=== PATIENT | male | born 1965 | race Caucasian/White ===

== ENCOUNTER 2017-04-16 09:19 | Emergency (ER) | payer BC ==
[~2017-04-16] VITALS: Ht 182.9 cm; Wt 100.0 kg
[2017-04-16] MEDS ORDERED: IOHEXOL 350 MG/ML 10 ML VIAL (for RAD DIAG) IVCONTRAST ONE (09:20)
[2017-04-16 09:24] VITALS: BP 193/103; PULSE 64; RESP 18; TEMP 97.8; O2SAT 100
[2017-04-16 10:11] VITALS: BP 183/99; PULSE 89
[2017-04-16] MEDS ORDERED: MORPHINE SULFATE 4 MG/ML INJ IV PUSH ONE (11:00)
[2017-04-16] MEDS ORDERED: SODIUM CHLORIDE 0.9% FLUSH 10 ML FLUSH IV FLUSH PRN (11:00)
[2017-04-16] MEDS ORDERED: ONDANSETRON HCL 4 MG/2 ML VIAL IVP ONE (11:00)
--- NOTE | 2017-04-16 11:06 | PD ---
HPI . Inability to urinate Chief Complaint: Complaint Time Seen by Provider: 10:38 Travel History International Travel<30 days: No Contact w/Intl Traveler<30days: No Traveled to known affect area: No History of Present Illness HPI This patient presents with chief complaint of the urge to urinate but the inability to do so. Onset of symptoms was shortly prior to presentation. He reports that he urinated normally on awakening this morning. He subsequently developed lower abdominal pain with the urge to urinate. This relatively suddenly. He does not have any back pain. No dysuria, frequency or hematuria. This pain is more on the left side. He rates it 7/10. No modifying factors. PFSH Past Medical History GERD: Yes Social History Alcohol Use: Yes (on occasion) Tobacco Use: No Substance Use: No Allergies-Medications (Allergen,Severity, Reaction): Coded Allergies: No Known Allergies (Unverified , 04/16/17) Review of Systems Except as stated in HPI: all other systems reviewed are Neg General / Constitutional: No: Fever, Chills Gastrointestinal: Positive: Nausea, Vomiting, No: Diarrhea Genitourinary: Positive: Urgency, Decreased Urinary Output, No: Frequency, Dysuria, Hematuria, Hesitancy, Dribbling Physical Exam Narrative GENERAL: Patient is awake and alert. SKIN: warm/dry. HEAD: Normocephalic. Atraumatic. EYES: Pupils equal and round. No scleral icterus. No injection or drainage. ENT: No nasal bleeding or discharge. Mucous membranes pink and moist. NECK: Trachea midline. Full range of motion without pain.. CARDIOVASCULAR: Regular rate and rhythm. RESPIRATORY: No accessory muscle use. Clear to auscultation. Breath sounds equal bilaterally. GASTROINTESTINAL: Abdomen soft. Suprapubic tenderness. Bowel sounds present. Nondistended. No CVA tenderness. MUSCULOSKELETAL: No obvious deformities. NEUROLOGICAL: Awake and alert. No obvious cranial nerve deficits. Motor grossly within normal limits. Normal speech. PSYCHIATRIC: Appropriate mood and affect; insight and judgment normal. Data Data Last Documented VS Vital Signs Date Time Temp Pulse Resp B/P (MAP) Pulse Ox O2 Delivery O2 Flow Rate FiO2 04/16/17 10:12 89 18 04/16/17 10:11 183/99 (127) 04/16/17 09:24 97.8 100 Orders Orders Complete Blood Count With Diff (04/16/17 10:59) Comprehensive Metabolic Panel (04/16/17 10:59) Urinalysis - C+S If Indicated (04/16/17 10:59) Ct Abd/Pel W Iv Contrast(Rout) (04/16/17 10:59) Iv Access Insert/Monitor (04/16/17 10:59) Morphine Inj (Morphine Inj) (04/16/17 11:00) Ondansetron Inj (Zofran Inj) (04/16/17 11:00) Sodium Chloride 0.9% Flush (Ns Flush) (04/16/17 11:00) Iohexol 350 Inj (Omnipaque 350 Inj) (04/16/17 09:20) Hydromorphone Pf Inj (Dilaudid Pf Inj) (04/16/17 13:15) Tamsulosin (Flomax) (04/16/17 13:15) Labs Laboratory Tests Test 04/16/17 11:25 04/16/17 12:57 White Blood Count 17.1 TH/MM3 Red Blood Count 4.97 MIL/MM3 Hemoglobin 15.3 GM/DL Hematocrit 45.4 % Mean Corpuscular Volume 91.3 FL Mean Corpuscular Hemoglobin 30.8 PG Mean Corpuscular Hemoglobin Concent 33.7 % Red Cell Distribution Width 13.0 % Platelet Count 319 TH/MM3 Mean Platelet Volume 8.7 FL Neutrophils (%) (Auto) 90.3 % Lymphocytes (%) (Auto) 5.5 % Monocytes (%) (Auto) 3.9 % Eosinophils (%) (Auto) 0.0 % Basophils (%) (Auto) 0.3 % Neutrophils # (Auto) 15.5 TH/MM3 Lymphocytes # (Auto) 0.9 TH/MM3 Monocytes # (Auto) 0.7 TH/MM3 Eosinophils # (Auto) 0.0 TH/MM3 Basophils # (Auto) 0.1 TH/MM3 CBC Comment DIFF FINAL Differential Comment Blood Urea Nitrogen 15 MG/DL Creatinine 1.25 MG/DL Random Glucose 143 MG/DL Total Protein 7.9 GM/DL Albumin 4.3 GM/DL Calcium Level 9.3 MG/DL Alkaline Phosphatase 88 U/L Aspartate Amino Transf (AST/SGOT) 19 U/L Alanine Aminotransferase (ALT/SGPT) 27 U/L Total Bilirubin 0.4 MG/DL Sodium Level 136 MEQ/L Potassium Level 3.9 MEQ/L Chloride Level 101 MEQ/L Carbon Dioxide Level 23.9 MEQ/L Anion Gap 11 MEQ/L Estimat Glomerular Filtration Rate 61 ML/MIN [facility] Medical Decision Making Medical Screen Exam Complete: Yes Emergency Medical Condition: Yes Differential Diagnosis Differential diagnosis of abdominal pain includes but is not limited to gastritis, pancreatitis, hepatitis, gastroenteritis, gallbladder disease, constipation, urinary retention, UTI, peptic ulcer disease, diverticulitis or appendicitis Narrative Course This patient presents with lower abdominal pain and the acute inability to urinate. He urinated normally earlier today. Bladder scanner was done and showed only 80 cc of urine in the bladder. An IV will be started and he will be given IV analgesia. CT of the abdomen and pelvis is pending to look for diverticulitis or kidney stone. Diagnosis Primary Impression: Kidney stone Referrals: Carlito Jackman MD Patient Instructions: General Instructions, Kidney Stones (DC) Med/Other Pt SpecificInfo: Prescription(s) given Scripts Ibuprofen (Ibuprofen) 800 Mg Tab 800 MG PO Q8H Y for Pain/Inflammation, #60 TAB 0 Refills Prov: Swetha De Santiago MD 04/16/17 Tamsulosin (Flomax) 0.4 Mg Cap 0.4 MG PO HS for Manage Prostate Problems, #30 CAP 0 Refills Prov: Swetha De Santiago MD 04/16/17 Promethazine (Phenergan) 25 Mg Tablet 25 MG PO Q6H Y for NAUSEA OR VOMITING, #12 TAB 0 Refills Prov: Swetha De Santiago MD 04/16/17 Oxycodone-Acetaminophen (Percocet) 5-325 mg Tab 1 TAB PO Q4H Y for PAIN, #12 TAB 0 Refills Prov: Swetha De Santiago MD 04/16/17 Disposition: 01 DISCHARGE HOME Condition: Stable Swetha De Santiago MD Apr 16, 2017 11:06
[2017-04-16 11:42] LABS: AUTOMATED NEUTROPHIL # 15.5 TH/MM3 (1.8-7.7); BASOPHIL # 0.1 TH/MM3 (0-0.2); BASOPHIL % 0.3 % (0.0-2.0); HEMATOCRIT 45.4 % (39.0-51.0); HEMO FLAGS DIFF FINAL; LYMPH % 5.5 % (9.0-44.0); LYMPHOCYTE # 0.9 TH/MM3 (1.0-4.8); MEAN CELL VOLUME 91.3 FL (80.0-100.0); MEAN CORPUSCULAR HEMOGLOBIN 30.8 PG (27.0-34.0); MEAN CORPUSCULAR HGB CONC 33.7 % (32.0-36.0); MONO % 3.9 % (0.0-8.0); NEUT % 90.3 % (16.0-70.0); PLATELET COUNT 319 TH/MM3 (150-450); RED BLOOD COUNT 4.97 MIL/MM3 (4.50-5.90); WHITE BLOOD COUNT 17.1 TH/MM3 (4.0-11.0)
[2017-04-16 11:55] LABS: ALT (GPT) 27 U/L (12-78)
[2017-04-16 11:57] LABS: ALKALINE PHOSPHATASE 88 U/L (45-117); ANION GAP 11 MEQ/L (5-15); AST (GOT) 19 U/L (15-37); BICARBONATE 23.9 MEQ/L (21.0-32.0); BLOOD UREA NITROGEN 15 MG/DL (7-18); CHLORIDE 101 MEQ/L (98-107); GLOMERULAR FILTRATION RATE 61 ML/MIN (>89); POTASSIUM 3.9 MEQ/L (3.5-5.1); SODIUM (NA) 136 MEQ/L (136-145); TOTAL BILIRUBIN ADULT 0.4 MG/DL (0.2-1.0)
--- NOTE | 2017-04-16 12:47 | RADRPT ---
EXAM DATE/TIME: 04/16/2017 12:12 [place] COMPARISON: No previous studies available for comparison. INDICATIONS : Left lower abdomen pain,nausea vomiting. IV CONTRAST: 80 cc Omnipaque 350 (iohexol) IV ORAL CONTRAST: No oral contrast ingested. RADIATION DOSE: 9.91 CTDIvol (mGy) MEDICAL HISTORY : Gastroesophageal reflux disease. SURGICAL HISTORY : None. ENCOUNTER: Initial ACUITY: 1 day PAIN SCALE: 8/10 LOCATION: Left Abdomen TECHNIQUE: Volumetric scanning of the abdomen and pelvis was performed. Using automated exposure control and ad justment of the mA and/or kV according to patient size, radiation dose was kept as low as reasonably achievable to obtain optimal diagnostic quality images. DICOM format image data is available electro nically for review and comparison. FINDINGS: LOWER LUNGS: The visualized lower lungs are clear. LIVER: Homogeneous density without lesion. There is no dilation of the biliary tree. No calcified gallston es. SPLEEN: Normal size without lesion. PANCREAS: Within normal limits. KIDNEYS: The right kidney is unremarkable. No hydronephrosis. There is moderate hydronephrosis the left kidney . There is perinephric edema. There is an 8 mm stone in the lower pole of left kidney not causing obs truction. The left ureter is dilated down to the left UVJ. There is a 4 mm stone at the UVJ or just i nside the urinary bladder. ADRENAL GLANDS: Within normal limits. VASCULAR: There is no aortic aneurysm. BOWEL/MESENTERY: The stomach, small bowel, and colon demonstrate no acute abnormality. There is no free intraperitone al air or fluid. No inflammatory changes. ABDOMINAL WALL: Within normal limits. RETROPERITONEUM: There is no lymphadenopathy. BLADDER: No wall thickening or mass. 4 mm stone just inside the urinary bladder on the left side. REPRODUCTIVE: Within normal limits. INGUINAL: There is no lymphadenopathy or hernia. MUSCULOSKELETAL: Within normal limits for patient age. CONCLUSION: 1. Moderate hydronephrosis the left kidney with perinephric edema. 2. 4 mm stone in the distal left ureter at the left UVJ or just inside the bladder on the left. 3. 8 mm stone lower pole left kidney not causing obstruction. Chuckie Andre MD on April 16, 2017 at 12:43 Board Certified Radiologist. This report was verified electronically.
[2017-04-16] MEDS ORDERED: HYDROmorphone HCL PF 2 MG/ML VIAL IV PUSH ONE (13:15)
[2017-04-16] MEDS ORDERED: TAMSULOSIN HCL 0.4 MG CAP PO ONE (13:15)
[2017-04-16] MEDS ORDERED: TAMS5CAP PO (13:17)
[2017-04-16] MEDS ORDERED: IBUP1TAB7 PO (13:17)
[2017-04-16] MEDS ORDERED: PROM25TA10 PO (13:17)
[2017-04-16] MEDS ORDERED: PERC5TAB12 PO (13:17)
[2017-04-16 13:20] LABS: BLOOD, URINE NEG (NEG); GLUCOSE,URINE NEG (NEG); KETONE, URINE 40 mg/dL (NEG); NITRITE,URINE NEG (NEG); SQUAMOUS EPITHELIAL CELL URINE <1 /hpf (0-5); URINE COLOR LIGHT-YELLOW (YELLW/STRAW)
[2017-04-16 13:22] LABS: COMMENT (UR) CULT NOT INDICATED; CULTURE IF INDICATED CULT NOT INDICATED
== END 2017-04-16 15:17 | disposition home or self-care (01) ==
LOC: NEPD 09:19
DX: N13.2 Hydronephrosis with renal and ureteral calculous obstruction (principal)
CPT/HCPCS: 74177; 80053; 81001; 85025; 96374; 96375; 99285; J1170; J2270; J2405; Q9967